=== PATIENT | female | born 1955 | race Caucasian/White ===

== ENCOUNTER 2016-12-01 10:21 | Outpatient (CLI) | payer OTHER ==
[2016-12-01 11:57] LABS: ALT (SGPT) 12 U/L (0-55); AST (SGOT) 21 U/L (5-34); Albumin 4.7 g/dL (3.4-4.8); Alkaline Phosphatase 75 U/L (40-150); Anion Gap 13 mmol/L (10-20); BUN (Urea Nitrogen) 16 mg/dL (9.8-20.1); Bilirubin, Total 0.4 mg/dL (0.2-1.2); Calc. Creatinine Clearance 0 mL/min (70-130); Calcium 9.6 mg/dL (7.8-10.44); Carbon Dioxide 26 mmol/L (23-31); Cardiac Risk 4.4 (Less than 4.5); Chloride 107 mmol/L (98-107); Cholesterol 314 mg/dL (< 200 Desired); Estimated GFR-MDRD 61; Glucose 101 mg/dL (80-115); HDL Cholesterol 72 mg/dL (>60 Neg Risk); LDL Cholesterol, Calculated 211 mg/dL; Potassium 4.8 mmol/L (3.5-5.1); Protein, Total 7.7 g/dL (5.8-8.1); Sodium 141 mmol/L (136-145); Triglycerides 156 mg/dL (Less than 150)
[2016-12-01 16:10] LABS: #Basophils 0.1 thou/uL (0.0-0.2); #Eosinphils 0.1 thou/uL (0.0-0.7); #Lymphocytes 1.7 thou/uL (1.20-3.40); #Monocytes 0.4 thou/uL (0.11-0.59); #Neutrophils 2.9 thou/uL (1.40-6.50); %Basophils 1.2 % (0.0-1.0); %Eosinophils 2.4 % (0.0-10.0); %Lymphocytes 33.8 % (21.0-51.0); %Monocytes 7.1 % (0.0-10.0); %Neutrophils 55.5 % (42.0-75.0); Hemoglobin 13.8 g/dL (12.0-16.0); Mean Corpuscular HGB CONC 32.9 g/dL (32.0-36.0); Mean Corpuscular Volume 91.1 fl (81.0-99.0); Mean Platelet Volume 6.4 fL (7.4-10.4); Platelet Count 289 thou/uL (130-400); RBC Distribution Width 12.5 % (11.5-14.5); White Blood Cell (WBC) Count 5.2 thou/uL (4.8-10.8)
--- NOTE | 2016-12-01 21:14 | RAD ---
CHEST TWO VIEWS: Date: 12-01-16 Comparison: 12-12-10 from [facility]. FINDINGS: The heart is normal in size and the lungs are clear. There is no sign of active thoracic disease. Th ere is no evidence for TB. Some mild degenerative changes are seen in the spine. Trachea is midline. IMPRESSION: No acute thoracic finding. POS: HOME
== END 2016-12-01 10:22 | disposition home or self-care (01) ==
LOC: BURRAD 10:21
PROVIDERS: ATTEND Family Medicine
DX: Z00.00 Encounter for general adult medical examination without abnormal findings (principal); Z86.11 Personal history of tuberculosis
CPT/HCPCS: 36415; 71020; 80053; 80061; 84443; 85025

== ENCOUNTER 2017-03-09 09:42 | Outpatient (CLI) | payer OTHER ==
[2017-03-09 16:43] LABS: ALT (SGPT) 19 U/L (8-55); AST (SGOT) 23 U/L (5-34); Albumin 4.3 g/dL (3.4-4.8); Alkaline Phosphatase 71 U/L (40-150); Bilirubin, Direct 0.2 mg/dL (0.1-0.3); Bilirubin, Total 0.6 mg/dL (0.2-1.2); Cardiac Risk 3.2 (Less than 4.5); Cholesterol 213 mg/dl (< 200 Desired); HDL Cholesterol 66 mg/dL (>60 Neg Risk); LDL Cholesterol, Calculated 124 mg/dL; Protein, Total 7.2 g/dL (6.0-8.3); Triglycerides 113 mg/dL (Less than 150)
== END 2017-03-09 09:43 | disposition home or self-care (01) ==
LOC: LABLEX 09:42
PROVIDERS: ATTEND Family Medicine
DX: E78.00 Pure hypercholesterolemia, unspecified (principal)
CPT/HCPCS: 80061; 80076